=== PATIENT | female | born 1970 | race Caucasian/White ===

== ENCOUNTER 2018-06-14 07:59 | Day surgery (SDC) | payer OTHER ==
[~2018-06-14] VITALS: Ht 165.1 cm; Wt 77.1 kg
[~2018-06-14 07:59] MED LIST: CEFOXITIN 2G in DEXTROSE 5% WATER 100ML IV NR; CEFOXITIN SODIUM 1 G/VIAL IV ONE
[2018-06-14] MEDS ORDERED: LACTATED RINGERS 1,000 ML IV SCH (08:00)
[2018-06-14 09:44] LABS: UCG SCREEN NEGATIVE
[2018-06-14] MEDS ORDERED: LIDOCAINE HCL 1% 20ML VIAL (Pyxis) INJ ONE (11:18)
[2018-06-14] MEDS ORDERED: SKIN ADHESIVE 0.7 GM EA TOP ONE (11:19)
[2018-06-14] MEDS ORDERED: BUPIVACAINE HCL 0.5% (5MG/ML) 50ML ONE (11:19)
[2018-06-14] MEDS ORDERED: NORMAL SALINE 0.9% 10 ML SYR ONE (11:19)
[2018-06-14] MEDS ORDERED: BACITRACIN 50,000 UNITS/VIAL ONE (11:19)
[2018-06-14] MEDS ORDERED: PROPOFOL 200MG/20ML VIAL IV ONE (11:20)
[2018-06-14] MEDS ORDERED: FENTANYL CITRATE/PF 50MCG/ML 2ML VIAL ONE (11:20)
[2018-06-14] MEDS ORDERED: ROCURONIUM BROMIDE 10MG/ML VIAL 5ML IV ONE ×2 (11:20→12:34)
[2018-06-14] MEDS ORDERED: LIDOCAINE HCL/PF 1% 10 MG/ML 5ML VIAL ONE (11:20)
[2018-06-14] MEDS ORDERED: SULF500T8 PO (11:22)
[2018-06-14] MEDS ORDERED: HYDR200T35 PO (11:22)
[2018-06-14] MEDS ORDERED: METH2.5T PO (11:22)
[2018-06-14] MEDS ORDERED: PRED-431 PO (11:22)
[2018-06-14] MEDS ORDERED: DEXAMETHASONE 4MG/ML 1ML VIAL ONE (11:34)
[2018-06-14] MEDS ORDERED: MEPERIDINE HCL/PF 25MG/ML CPJ IV PRN (12:15)
[2018-06-14] MEDS ORDERED: ONDANSETRON HCL 4MG/2ML INJ IV PRN (12:15)
[2018-06-14] MEDS ORDERED: HYDROMORPHONE HCL/PF 2MG/ML CPJ IV PRN (12:15)
[2018-06-14] MEDS ORDERED: ONDANSETRON HCL 4MG/2ML INJ ONE (13:05)
[2018-06-14] MEDS ORDERED: KETOROLAC 30MG/ML VIAL ONE (13:05)
[2018-06-14] MEDS ORDERED: GLYCOPYRROLATE 0.2 MG/ML 2ML VIAL ONE (13:05)
[2018-06-14] MEDS ORDERED: NEOSTIGMINE METHYLSULFATE 1MG/ML 10 ML VIAL ONE (13:05)
[2018-06-14] MEDS ORDERED: KETOROLAC 30MG/ML VIAL IV NR (15:15)
[2018-06-14 16:11] VITALS: BP 128/77
== END 2018-06-14 17:10 | disposition home or self-care (01) ==
LOC: OR 07:59
PROVIDERS: ATTEND Specialist
DX: K40.90 Unilateral inguinal hernia, without obstruction or gangrene, not specified as recurrent (principal); M06.9 Rheumatoid arthritis, unspecified; Z79.899 Other long term (current) drug therapy
CPT/HCPCS: 49505; 81025; 88302; A4216; C1781; J0694; J1100; J1885; J2175; J2405; J2710; J3010; J3490; J2704; J7060